=== PATIENT | female | born 1985 | race Caucasian/White ===

== ENCOUNTER 2016-11-20 23:41 | Emergency (ER) | payer SELFPAY ==
[2016-11-21 00:05] VITALS: RESP 16; TEMP 97.2
[2016-11-21] MEDS ORDERED: TOPICAL SKIN ADHESIVE 1 EACH AMP TOPICAL ONE (02:39)
[2016-11-21] MEDS ORDERED: DIPH,PERTUS(ACELL)TETVAC-LF 0.5 ML VIAL IM ONE (02:41)
--- NOTE | 2016-11-21 02:42 | ED ---
Wound/Laceration HPI - General Chief Complaint: Wound/Laceration Stated Complaint: hand lac Time Seen by Provider: 11/21/16 02:09 Source: patient, RN notes reviewed, old records reviewed Mode of arrival: ambulatory Limitations: no limitations - History of Present Illness Initial Comments: Patient is a 31 year old female with chief complaint of left palm laceration after attempting to cut brownies and the knife slipped. She states that she has a superficial laceration. Patient is right handed. She denies any trouble with moving wrist or fingers. Patient does not know tetanus status. Patient reports she could not control the bleeding. - Related Data Home Medications Medication Instructions Recorded Confirmed No Known Home Medications [No 11/21/16 11/21/16 Known Home Medications] Allergies Allergy/AdvReac Type Severity Reaction Status Date / Time No Known Allergies Allergy Verified 11/21/16 00:04 Review of Systems ROS Statement: Those systems with pertinent positive or pertinent negative responses have been documented in the HPI. ROS Other: All systems not noted in ROS Statement are negative. Past Medical History Past Medical History: No Reported History History of Any Multi-Drug Resistant Organisms: None Reported Past Surgical History: No Surgical Hx Reported Past Psychological History: No Psychological Hx Reported Smoking Status: Never smoker Past Alcohol Use History: None Reported Past Drug Use History: None Reported General Exam Limitations: no limitations General appearance: alert, in no apparent distress Head exam: Present: atraumatic, normocephalic, normal inspection Eye exam: Present: normal appearance, PERRL, EOMI. Absent: scleral icterus, conjunctival injection, periorbital swelling ENT exam: Present: normal exam, mucous membranes moist Neck exam: Present: normal inspection. Absent: tenderness, meningismus, lymphadenopathy Respiratory exam: Present: normal lung sounds bilaterally. Absent: respiratory distress, wheezes, rales, rhonchi, stridor Cardiovascular Exam: Present: regular rate, normal rhythm, normal heart sounds. Absent: systolic murmur, diastolic murmur, rubs, gallop, clicks GI/Abdominal exam: Present: soft, normal bowel sounds. Absent: distended, tenderness, guarding, rebound, rigid Extremities exam: Present: normal inspection, full ROM, normal capillary refill. Absent: tenderness, pedal edema, joint swelling, calf tenderness Left Upper Arm exam: Present: normal inspection, full ROM Elbow exam: Present: normal inspection, full ROM Forearm Wrist exam: Present: normal inspection, full ROM Hand Wrist exam: Present: full ROM. Absent: normal inspection (superficial laceration over palm. ) Back exam: Present: normal inspection Neurological exam: Present: alert, oriented X3, CN II-XII intact Psychiatric exam: Present: normal affect, normal mood Skin exam: Present: warm, dry, intact, normal color. Absent: rash Course Vital Signs 11/21/16 11/21/16 00:04 03:04 Temperature 97.2 F L Pulse Rate 82 69 Respiratory 16 16 Rate Blood Pressure 131/72 131/74 O2 Sat by Pulse 97 98 Oximetry Medical Decision Making - Medical Decision Making Patient is 31 year old with superficial laceration over left hand. Patient wound was soaked in soapy water, and patient wound was aproximated and closed with dermabond. Patient given up dated tetanus vaccination. Patient advised to monitor for signs of infection. Disposition Clinical Impression: Laceration of left hand Disposition: HOME SELF-CARE Condition: Good Instructions: Skin Adhesive Care (ED) Additional Instructions: Patient to allow skin glue to follow up on his own. Keep the wound covered. Monitor for any signs of infection including redness, drainage or swelling. Referrals: Nonstaff,Physician [Primary Care Provider] - 1-2 days Time of Disposition: 02:40
[2016-11-21 03:05] VITALS: BP 131/74; PULSE 69
== END 2016-11-21 03:04 | disposition home or self-care (01) ==
LOC: EC 23:41
DX: S61.412A Laceration without foreign body of left hand, initial encounter (principal); W26.0XXA Contact with knife, initial encounter; Z23 Encounter for immunization
CPT/HCPCS: 12001; 90471; 90715; 99283

== ENCOUNTER 2018-08-03 20:32 | Emergency (ER) | payer OTHER ==
[2018-08-03 20:39] VITALS: TEMP 97.5
--- NOTE | 2018-08-03 21:47 | XR ---
EXAMINATION TYPE: XR knee 4V bilateral, XR tibia fibula bilateral DATE OF EXAM: 08/03/2018 CLINICAL HISTORY: TECHNIQUE: Three views of the bilateral knees are obtained. Fourth sunrise view bilateral knees is p erformed. 2 views bilateral legs are acquired. COMPARISON: None. FINDINGS: There is no acute fracture/dislocation evident in either knee. There is symmetric mild to moderate narrowing and spurring medial tibiofemoral compartments somewhat pronounced for patient's ag e. There is symmetric mild to moderate narrowing with mild spurring bilateral patellofemoral compartm ents. Patellar articulation is within normal limits on bilateral sunrise views. The overlying soft ti ssue appears unremarkable bilaterally. Images of bilateral legs show no acute fracture or dislocation. Visualized portion of bilateral ankle joints appears within normal limits. Overlying soft tissue is unremarkable bilaterally. Incidental s mall to moderate size right superior and inferior calcaneal spurs. Entire left calcaneus is not inclu ded on image. IMPRESSION: There is no acute fracture or dislocation in the either leg or knee.
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
[2018-08-03 23:13] VITALS: BP 123/80; PULSE 73; RESP 16
== END 2018-08-03 22:54 | disposition home or self-care (01) ==
LOC: EC 20:32 → SUPCPDRO 20:32 → EC 22:54
DX: S80.212A Abrasion, left knee, initial encounter (principal); S80.812A Abrasion, left lower leg, initial encounter; S80.811A Abrasion, right lower leg, initial encounter; V43.52XA Car driver injured in collision with other type car in traffic accident, initial encounter; Y92.410 Unspecified street and highway as the place of occurrence of the external cause
CPT/HCPCS: 99284

== ENCOUNTER 2021-06-02 18:51 | Emergency (ER) | payer OTHER ==
[2021-06-02] MEDS ORDERED: ACETAMINOPHEN TAB 500 MG TAB PO STA (19:25)
--- NOTE | 2021-06-02 19:28 | ED ---
General Adult HPI - General Chief complaint: Fever Stated complaint: 10wks preg, fever Time Seen by Provider: 06/02/21 19:01 Source: patient, RN notes reviewed Mode of arrival: ambulatory Limitations: no limitations - History of Present Illness Initial comments: Patient is a pleasant 35-year-old female presenting to the emergency department with concerns for fever. Onset of symptoms was yesterday. Temperature yesterday was 99. Today was 101. Last Tylenol was fueler/late last night. Patient does have some mild fatigue. No significant cough or rhinorrhea. No dyspnea. No abdominal pain. No pelvic pain. No pelvic discharge or bleeding. No urinary symptoms. - Related Data Home Medications Medication Instructions Recorded Confirmed Lep-Rloe-Dtsev Acid 2 cap PO HS 06/02/21 06/02/21 [-U Capsule (formulary)] Previous Rx's Medication Instructions Recorded Cephalexin [Keflex] 500 mg PO QID #36 cap 06/02/21 Allergies Allergy/AdvReac Type Severity Reaction Status Date / Time No Known Allergies Allergy Verified 06/02/21 20:26 Review of Systems ROS Statement: Those systems with pertinent positive or pertinent negative responses have been documented in the HPI. ROS Other: All systems not noted in ROS Statement are negative. Constitutional: Reports: fever Eyes: Denies: eye pain ENT: Denies: ear pain Respiratory: Denies: cough, dyspnea Cardiovascular: Denies: chest pain Endocrine: Reports: fatigue Gastrointestinal: Denies: abdominal pain, vomiting Genitourinary: Denies: dysuria Musculoskeletal: Denies: back pain Skin: Denies: rash Neurological: Denies: weakness Past Medical History Past Medical History: No Reported History, Thyroid Disorder History of Any Multi-Drug Resistant Organisms: None Reported Past Surgical History: No Surgical Hx Reported Additional Past Surgical History / Comment(s): kidney stone surgery Past Psychological History: No Psychological Hx Reported Smoking Status: Never smoker Past Alcohol Use History: None Reported Past Drug Use History: None Reported General Exam Limitations: no limitations General appearance: alert, in no apparent distress Head exam: Present: normocephalic Eye exam: Present: normal appearance, PERRL ENT exam: Present: normal oropharynx Neck exam: Present: normal inspection Respiratory exam: Present: normal lung sounds bilaterally. Absent: respiratory distress, wheezes, rales, rhonchi Cardiovascular Exam: Present: regular rate, normal rhythm GI/Abdominal exam: Present: soft. Absent: tenderness Extremities exam: Present: normal inspection. Absent: pedal edema, calf tenderness Neurological exam: Present: alert Psychiatric exam: Present: normal affect, normal mood Skin exam: Present: normal color Course Vital Signs 06/02/21 06/02/21 18:53 21:00 Temperature 102.7 F H 98.9 F Pulse Rate 110 H 102 H Respiratory 20 18 Rate Blood Pressure 129/89 139/86 O2 Sat by Pulse 97 97 Oximetry Medical Decision Making - Medical Decision Making Patient reevaluated and updated. - Lab Data Lab Results 06/02/21 06/02/21 06/02/21 Range/Units 19:29 19:29 19:29 Urine Color Yellow Urine Appearance Cloudy H (Clear) Urine pH 7.0 (5.0-8.0) Ur Specific [place] 1.012 (1.001-1.035) Urine Protein 1+ H (Negative) Urine Glucose (UA) Negative (Negative) Urine Ketones Negative (Negative) Urine Blood Small H (Negative) Urine Nitrite Negative (Negative) Urine Bilirubin Negative (Negative) Urine Urobilinogen <2.0 (<2.0) mg/dL Ur Leukocyte Esterase Large H (Negative) Urine RBC 33 H (0-5) /hpf Urine WBC >182 H (0-5) /hpf Urine WBC Clumps Many H (None) /hpf Ur Squamous Epith Cells 2 (0-4) /hpf Urine Bacteria Many H (None) /hpf Urine Mucus Rare H (None) /hpf Urine Yeast (Budding) Many H (None) /hpf Coronavirus (PCR) Not Detected (Not Detectd) Influenza Type A RNA Not Detected (Not Detectd) Influenza Type B (PCR) Not Detected (Not Detectd) - Radiology Data Radiology results: image reviewed (Chest x-ray shows no acute process) Disposition Clinical Impression: Urinary tract infection Disposition: HOME SELF-CARE Condition: Stable Instructions (If sedation given, give patient instructions): Fever in Adults (ED), Urinary Tract Infection in Women (ED) Additional Instructions: Please follow-up with [facility] and primary care physician in the next day or 2 for recheck. Prescription sent to pharmacy. Return for uncontrolled fever, vomiting, pain, worsening symptoms or other concerns. Prescriptions: Cephalexin [Keflex] 500 mg PO QID #36 cap Is patient prescribed a controlled substance at d/c from ED?: No Referrals: Aminah Florez DO [Primary Care Provider] - 1-2 days Time of Disposition: 21:47
--- NOTE | 2021-06-02 20:07 | XR ---
EXAMINATION TYPE: XR chest 1V portable DATE OF EXAM: 06/02/2021 COMPARISON: NONE HISTORY: Fever TECHNIQUE: Single frontal view of the chest is obtained. FINDINGS: There is no focal air space opacity, pleural effusion, or pneumothorax seen. The cardiac silhouette size is within normal limits. The osseous structures are intact. IMPRESSION: No acute process.
[2021-06-02 21:01] VITALS: BP 139/86; PULSE 102; RESP 18; TEMP 98.9
[2021-06-02 21:13] LABS: Appearance,Urine Cloudy (Clear); Bacteria,Urine Many /hpf; Bilirubin,Urine Negative (Negative); Blood,Urine Small (Negative); Budding Yeast,Urine Many /hpf; Color,Urine Yellow; Glucose,Urine (UA) Negative (Negative); Ketones,Urine Negative (Negative); Leukocyte Esterase,Urine Large (Negative); Mucus,Urine Rare /hpf; Nitrite,Urine Negative (Negative); Protein,Urine 1+ (Negative); RBC,Urine 33 /hpf (0-5); Specific Gravity,Urine 1.012 (1.001-1.035); Squamous Epithelial Cell,Urine 2 /hpf (0-4); Urobilinogen,Urine <2.0 mg/dL (<2.0); WBC,Urine >182 /hpf (0-5)
[2021-06-02] MEDS ORDERED: CEPHALEXIN 500MG STARTER PACK 4 CAP BTL PO STA (21:45)
== END 2021-06-02 22:08 | disposition home or self-care (01) ==
LOC: EC 18:51
DX: O23.41 Unspecified infection of urinary tract in pregnancy, first trimester (principal); Z3A.10 10 weeks gestation of pregnancy
CPT/HCPCS: 71045; 81001; 87086; 87502; 87635; 99283

== ENCOUNTER 2021-06-22 17:49 | Emergency (ER) | payer OTHER ==
[2021-06-22 18:02] VITALS: BP 158/97; PULSE 81; RESP 20; TEMP 98.7
[2021-06-22] MEDS ORDERED: SODIUM CHLORIDE 0.9% 1,000 ML IV STA (18:56)
[2021-06-22 19:19] LABS: Basophils % (A) 0 %; Eosinophils # (A) 0.2 k/uL (0-0.7); Eosinophils % (A) 2 %; HCT 39.6 % (34.0-46.0); HGB 13.1 gm/dL (11.4-16.0); Lymphocytes # (A) 2.2 k/uL (1.0-4.8); Lymphocytes % (A) 19 %; MCH 29.3 pg (25.0-35.0); MCHC 33.2 g/dL (31.0-37.0); MCV 88.2 fL (80.0-100.0); Mean Platelet Volume 6.8; Monocytes # (A) 0.5 k/uL (0-1.0); Monocytes % (A) 4 %; Neutrophils # (A) 8.4 k/uL (1.3-7.7); Neutrophils % (A) 73 %; Platelet Count 276 k/uL (150-450); RBC 4.49 m/uL (3.80-5.40); RDW 12.7 % (11.5-15.5); WBC 11.5 k/uL (3.8-10.6)
[2021-06-22 19:32] LABS: Appearance,Urine Cloudy (Clear); Bacteria,Urine Few /hpf; Bilirubin,Urine Negative (Negative); Blood,Urine Large (Negative); Budding Yeast,Urine Moderate /hpf; Color,Urine Light Yellow; Glucose,Urine (UA) Negative (Negative); Ketones,Urine Negative (Negative); Leukocyte Esterase,Urine Large (Negative); Mucus,Urine Rare /hpf; Nitrite,Urine Negative (Negative); Protein,Urine Trace (Negative); RBC,Urine >182 /hpf (0-5); Specific Gravity,Urine 1.011 (1.001-1.035); Squamous Epithelial Cell,Urine <1 /hpf (0-4); Urobilinogen,Urine <2.0 mg/dL (<2.0); WBC,Urine 117 /hpf (0-5)
[2021-06-22 19:38] LABS: ALT 16 U/L (4-34); AST 22 U/L (14-36); African American GFR (CKD) >90 (>60 ml/min/1.73 sqM); Albumin 3.7 g/dL (3.5-5.0); Alkaline Phosphatase 63 U/L (38-126); Anion Gap 9 mmol/L; Blood Urea Nitrogen 18 mg/dL (7-17); Calcium 9.9 mg/dL (8.4-10.2); Carbon Dioxide 24 mmol/L (22-30); Chloride 101 mmol/L (98-107); Glucose 94 mg/dL (74-99); Non-African American GFR(CKD) >90 (>60 ml/min/1.73 sqM); Potassium 3.9 mmol/L (3.5-5.1); Sodium 134 mmol/L (137-145); Total Bilirubin 0.4 mg/dL (0.2-1.3); Total Protein 7.2 g/dL (6.3-8.2)
[2021-06-22 19:47] LABS: HCG,Quantitative Serum 741.6 mIU/mL
--- NOTE | 2021-06-22 20:16 | US ---
EXAMINATION TYPE: Transabdominal DATE OF EXAM: 06/22/2021 7:59 PM COMPARISON: NONE CLINICAL HISTORY: bleeding. Very limited exam due to patient body habitus EXAM PERFORMED: Transabdominal (TA) EXAM MEASUREMENTS: GESTATIONAL AGE / DATING Physician Established: Not yet established Dates by LMP: (12 weeks/1 days) EDC: 01/03/2022 Dates by First Scan: No previous this is first scan Dates by Current Scan for: No pole visualized MATERNAL ANATOMY Uterus: 9.5 x 4.0 x 3.9 cm Right Ovary: Not visualized Left Ovary: Not visualized Post CDS / Adnexa: wnl as visualized Presence of free fluid: no Presence of corpus luteal cyst: no Presence of subchorionic bleed: no GESTATION / SURVEY MSD: 1.2 cm (5 weeks/6 days) Yolk Sac (normal less than 6mm): 2 mm IUP: No pole seen at this time Date of LMP: Unsure, in march some time Beta HcG (if available): 741 Located near the cervix, there is a probable gestational sac measuring 5 weeks 6 days with a yolk sac . No pole is visualized. IMPRESSION: There is small gestational sac with 2.5 mm yolk sac. Gestational sac measures 12 mm corresponding to 5 weeks and 6 days. The sac is in the lower uterine segment near the cervix. No pole seen. Foll ow-up exam recommended in 7-10 days to confirm a living fetus.
--- NOTE | 2021-06-22 20:45 | ED ---
General Adult HPI - General Chief complaint: Vaginal Bleeding Stated complaint: 13 wks -discharge Time Seen by Provider: 06/22/21 18:25 Source: patient Mode of arrival: ambulatory Limitations: no limitations - History of Present Illness Initial comments: 35-year-old female currently estimated to be 13 weeks by LMP presents to the emergency room for a chief complaint of vaginal bleeding and mild cramping. Patient states this just started today. Patient reports she has not yet followed up with OB. No ultrasound as of yet.Patient has no other complaints at this time including shortness of breath, chest pain, abdominal pain, nausea or vomiting, headache, or visual changes. - Related Data Home Medications Medication Instructions Recorded Confirmed Czg-Hjep-Gnfvk Acid 1 cap PO HS 06/02/21 06/22/21 [-U Capsule (formulary)] Allergies Allergy/AdvReac Type Severity Reaction Status Date / Time No Known Allergies Allergy Verified 06/22/21 20:18 Review of Systems ROS Statement: Those systems with pertinent positive or pertinent negative responses have been documented in the HPI. ROS Other: All systems not noted in ROS Statement are negative. Past Medical History Past Medical History: No Reported History, Thyroid Disorder History of Any Multi-Drug Resistant Organisms: None Reported Past Surgical History: No Surgical Hx Reported Additional Past Surgical History / Comment(s): kidney stone surgery Past Psychological History: No Psychological Hx Reported Smoking Status: Never smoker Past Alcohol Use History: None Reported Past Drug Use History: None Reported General Exam Limitations: no limitations General appearance: alert, in no apparent distress Head exam: Present: atraumatic Eye exam: Present: normal appearance, PERRL, EOMI. Absent: scleral icterus, conjunctival injection ENT exam: Present: normal exam Neck exam: Present: normal inspection, full ROM. Absent: tenderness Respiratory exam: Present: normal lung sounds bilaterally. Absent: respiratory distress, wheezes Cardiovascular Exam: Present: regular rate, normal rhythm, normal heart sounds GI/Abdominal exam: Present: soft, normal bowel sounds. Absent: distended, tenderness Neurological exam: Present: alert Course Vital Signs 06/22/21 17:51 Temperature 98.7 F Pulse Rate 81 Respiratory 20 Rate Blood Pressure 158/97 O2 Sat by Pulse 98 Oximetry Medical Decision Making - Medical Decision Making vitals stable. CBC CMP unremarkable. HCG is 741. A positive blood type. Urinalysis does show possible evidence of infection, will be treated given recommendations to treat asymptomatic bacturia in . Ultrasound showed a small gestational sac, no pole, recommended follow-up. At this time there is concern for early versus miscarriage. Case was discussed with on-call [employer] Dr. [place]. She does except this case. Will see her outpatient. Recommend hCG be repeated. Recommends that ectopic precautions be given although unlikely. Patient will return here for any worsening symptoms. - Lab Data Result diagrams: 06/22/21 19:06 06/22/21 19:06 Lab Results 06/22/21 06/22/21 06/22/21 Range/Units 19:06 19:06 19:06 WBC 11.5 H (3.8-10.6) k/uL RBC 4.49 (3.80-5.40) m/uL Hgb 13.1 (11.4-16.0) gm/dL Hct 39.6 (34.0-46.0) % MCV 88.2 (80.0-100.0) fL MCH 29.3 (25.0-35.0) pg MCHC 33.2 (31.0-37.0) g/dL RDW 12.7 (11.5-15.5) % Plt Count 276 (150-450) k/uL MPV 6.8 Neutrophils % 73 % Lymphocytes % 19 % Monocytes % 4 % Eosinophils % 2 % Basophils % 0 % Neutrophils # 8.4 H (1.3-7.7) k/uL Lymphocytes # 2.2 (1.0-4.8) k/uL Monocytes # 0.5 (0-1.0) k/uL Eosinophils # 0.2 (0-0.7) k/uL Basophils # 0.0 (0-0.2) k/uL Sodium 134 L (137-145) mmol/L Potassium 3.9 (3.5-5.1) mmol/L Chloride 101 (98-107) mmol/L Carbon Dioxide 24 (22-30) mmol/L Anion Gap 9 mmol/L BUN 18 H (7-17) mg/dL Creatinine 0.79 (0.52-1.04) mg/dL Est GFR (CKD-EPI)AfAm >90 (>60 ml/min/1.73 sqM) Est GFR (CKD-EPI)NonAf >90 (>60 ml/min/1.73 sqM) Glucose 94 (74-99) mg/dL Calcium 9.9 (8.4-10.2) mg/dL Total Bilirubin 0.4 (0.2-1.3) mg/dL AST 22 (14-36) U/L ALT 16 (4-34) U/L Alkaline Phosphatase 63 (38-126) U/L Total Protein 7.2 (6.3-8.2) g/dL Albumin 3.7 (3.5-5.0) g/dL HCG, Quant 741.6 mIU/mL Urine Color Light Yellow Urine Appearance Cloudy H (Clear) Urine pH 7.0 (5.0-8.0) Ur Specific [place] 1.011 (1.001-1.035) Urine Protein Trace H (Negative) Urine Glucose (UA) Negative (Negative) Urine Ketones Negative (Negative) Urine Blood Large H (Negative) Urine Nitrite Negative (Negative) Urine Bilirubin Negative (Negative) Urine Urobilinogen <2.0 (<2.0) mg/dL Ur Leukocyte Esterase Large H (Negative) Urine RBC >182 H (0-5) /hpf Urine WBC 117 H (0-5) /hpf Urine WBC Clumps Moderate H (None) /hpf Ur Squamous Epith Cells <1 (0-4) /hpf Urine Bacteria Few H (None) /hpf Urine Mucus Rare H (None) /hpf Urine Yeast (Budding) Moderate H (None) /hpf Blood Type Blood Type Recheck Bld Type Recheck Status 06/22/21 Range/Units 19:06 WBC (3.8-10.6) k/uL RBC (3.80-5.40) m/uL Hgb (11.4-16.0) gm/dL Hct (34.0-46.0) % MCV (80.0-100.0) fL MCH (25.0-35.0) pg MCHC (31.0-37.0) g/dL RDW (11.5-15.5) % Plt Count (150-450) k/uL MPV Neutrophils % % Lymphocytes % % Monocytes % % Eosinophils % % Basophils % % Neutrophils # (1.3-7.7) k/uL Lymphocytes # (1.0-4.8) k/uL Monocytes # (0-1.0) k/uL Eosinophils # (0-0.7) k/uL Basophils # (0-0.2) k/uL Sodium (137-145) mmol/L Potassium (3.5-5.1) mmol/L Chloride (98-107) mmol/L Carbon Dioxide (22-30) mmol/L Anion Gap mmol/L BUN (7-17) mg/dL Creatinine (0.52-1.04) mg/dL Est GFR (CKD-EPI)AfAm (>60 ml/min/1.73 sqM) Est GFR (CKD-EPI)NonAf (>60 ml/min/1.73 sqM) Glucose (74-99) mg/dL Calcium (8.4-10.2) mg/dL Total Bilirubin (0.2-1.3) mg/dL AST (14-36) U/L ALT (4-34) U/L Alkaline Phosphatase (38-126) U/L Total Protein (6.3-8.2) g/dL Albumin (3.5-5.0) g/dL HCG, Quant mIU/mL Urine Color Urine Appearance (Clear) Urine pH (5.0-8.0) Ur Specific [place] (1.001-1.035) Urine Protein (Negative) Urine Glucose (UA) (Negative) Urine Ketones (Negative) Urine Blood (Negative) Urine Nitrite (Negative) Urine Bilirubin (Negative) Urine Urobilinogen (<2.0) mg/dL Ur Leukocyte Esterase (Negative) Urine RBC (0-5) /hpf Urine WBC (0-5) /hpf Urine WBC Clumps (None) /hpf Ur Squamous Epith Cells (0-4) /hpf Urine Bacteria (None) /hpf Urine Mucus (None) /hpf Urine Yeast (Budding) (None) /hpf Blood Type A Positive Blood Type Recheck No Previous Record Bld Type Recheck Status [facility] ONLY Disposition Clinical Impression: Threatened miscarriage Disposition: HOME SELF-CARE Condition: Good Instructions (If sedation given, give patient instructions): Threatened Miscarriage (ED) Additional Instructions: Please repeat hCG in 2 days. Follow-up with Dr. Sharif. Call the office tomorrow and let them know she would like to see you. You may need an ultrasound next week in office. Return to the emergency room for any worsening pain or vaginal bleeding. Is patient prescribed a controlled substance at d/c from ED?: No Referrals: Aminah Florez DO [Primary Care Provider] - 1-2 days Naomie Sharif DO [Doctor of Osteopathic Medicine] - 1-2 days Time of Disposition: 20:56
== END 2021-06-22 21:14 | disposition home or self-care (01) ==
LOC: EC 17:49
DX: O20.0 Threatened abortion (principal); Z3A.13 13 weeks gestation of pregnancy
CPT/HCPCS: 36415; 76801; 76817; 80053; 81001; 84702; 85025; 86900; 86901; 87077; 87086; 87186; 96360; 99284

== ENCOUNTER 2021-06-24 15:04 | Emergency (ER) | payer OTHER ==
[2021-06-24 16:37] VITALS: TEMP 98.2
[2021-06-24 18:32] LABS: Appearance,Urine Cloudy (Clear); Bacteria,Urine Many /hpf; Bilirubin,Urine Negative (Negative); Blood,Urine Large (Negative); Color,Urine Yellow; Glucose,Urine (UA) Negative (Negative); Ketones,Urine Trace (Negative); Leukocyte Esterase,Urine Large (Negative); Mucus,Urine Rare /hpf; Nitrite,Urine Negative (Negative); PH, Urine 6.5 (5.0-8.0); Protein,Urine Trace (Negative); RBC,Urine 175 /hpf (0-5); Specific Gravity,Urine 1.009 (1.001-1.035); Squamous Epithelial Cell,Urine 1 /hpf (0-4); Urobilinogen,Urine <2.0 mg/dL (<2.0); WBC,Urine >182 /hpf (0-5)
[2021-06-24 18:37] LABS: ALT 16 U/L (4-34); AST 22 U/L (14-36); African American GFR (CKD) >90 (>60 ml/min/1.73 sqM); Albumin 3.8 g/dL (3.5-5.0); Alkaline Phosphatase 64 U/L (38-126); Anion Gap 9 mmol/L; Blood Urea Nitrogen 13 mg/dL (7-17); Carbon Dioxide 23 mmol/L (22-30); Chloride 103 mmol/L (98-107); Glucose 91 mg/dL (74-99); Non-African American GFR(CKD) >90 (>60 ml/min/1.73 sqM); Potassium 3.8 mmol/L (3.5-5.1); Sodium 135 mmol/L (137-145); Total Bilirubin 0.8 mg/dL (0.2-1.3); Total Protein 7.2 g/dL (6.3-8.2)
[2021-06-24 18:40] LABS: Basophils % (A) 0 %; Eosinophils # (A) 0.2 k/uL (0-0.7); Eosinophils % (A) 2 %; HCT 39.7 % (34.0-46.0); HGB 13.6 gm/dL (11.4-16.0); Lymphocytes # (A) 1.6 k/uL (1.0-4.8); Lymphocytes % (A) 18 %; MCH 29.7 pg (25.0-35.0); MCHC 34.3 g/dL (31.0-37.0); MCV 86.7 fL (80.0-100.0); Mean Platelet Volume 6.4; Monocytes # (A) 0.4 k/uL (0-1.0); Monocytes % (A) 4 %; Neutrophils # (A) 6.5 k/uL (1.3-7.7); Neutrophils % (A) 74 %; Platelet Count 270 k/uL (150-450); RBC 4.59 m/uL (3.80-5.40); RDW 13.5 % (11.5-15.5); WBC 8.8 k/uL (3.8-10.6)
[2021-06-24 18:44] LABS: Partial Thromboplastin Time 23.1 sec (22.0-30.0); Prothrombin Time 10.5 sec (9.0-12.0)
[2021-06-24 18:53] LABS: HCG,Quantitative Serum 249.9 mIU/mL
--- NOTE | 2021-06-24 19:42 | US ---
EXAMINATION TYPE: Transabdominal DATE OF EXAM: 06/24/2021 7:14 PM COMPARISON: US CLINICAL HISTORY: , heavy vaginal bleeding. Heavy vaginal bleeding. . EXAM PERFORMED: Transvaginal (TV) and Transabdominal (TA) EXAM MEASUREMENTS: GESTATIONAL AGE / DATING Physician Established: Not yet established. Dates by LMP: (12 weeks/3 days) EDC: 01/03/2022 Dates by First Scan: (6 weeks/1 day) EDC: 02/16/2022. Gestational sac seen only. Dates by Current Scan for: ( 5 weeks/2 days) EDC: 02/22/2022. Gestational sac seen only, appears to be in lower uterus/cervix. MATERNAL ANATOMY Uterus: 8.2 x 4.4 x 3.8 cm. Right Ovary: Not seen. Left Ovary: Not seen. Post CDS / Adnexa: Appear wnl. Presence of free fluid: No. Presence of corpus luteal cyst: Not seen. Presence of subchorionic bleed: Heterogeneous area seen adjacent to the gestational sac: 1.2 x 1.3 x 1.2 cm. GESTATION / SURVEY MSD: 1.14 cm. (5 weeks/2 days). Appears to be in lower uterus/cervix area. Yolk Sac (normal less than 6mm): Not seen. Date of LMP: 03/29/2021 Beta HcG (if available): 249.9 IMPRESSION: Irregularly shaped intrauterine gestational sac without a yolk sac. In the setting of falling beta hC G findings are concerning for but not diagnostic of failure. Differential considerations in clude early IUP, non-visualized ectopic or failed . Recommend follow-up with seria l beta-hCG and ultrasound.
--- NOTE | 2021-06-24 20:49 | ED ---
General Adult HPI - General Chief complaint: Vaginal Bleeding Stated complaint: 6 weeks ,Bleeding and cramping Source: patient Mode of arrival: ambulatory Limitations: no limitations - History of Present Illness Initial comments: 35-year-old female approximately 6 weeks presents emergency department for continued bleeding and cramping. Patient was seen here Monday for similar complaints. She did ultrasound performed which demonstrated an intrauterine approximately 6 weeks along. She is supposed to follow with Dr. Sharif states she has an appointment on Monday. Patient was supposed to have repeat laboratory testing done today. States that her bleeding has gotten heavier with clots and therefore she came into the emergency department for evaluation instead. Patient denies any abdominal trauma. No abnormal vaginal discharge. Denies concern for sexual transmitted infections. No urinary or bowel complaints. No other alleviating, precipitating modifying factors - Related Data Home Medications Medication Instructions Recorded Confirmed Mwi-Uyzr-Oewcr Acid 1 cap PO HS 06/02/21 06/24/21 [-U Capsule (formulary)] Allergies Allergy/AdvReac Type Severity Reaction Status Date / Time No Known Allergies Allergy Verified 06/24/21 19:30 Review of Systems ROS Statement: Those systems with pertinent positive or pertinent negative responses have been documented in the HPI. ROS Other: All systems not noted in ROS Statement are negative. Past Medical History Past Medical History: No Reported History, Thyroid Disorder History of Any Multi-Drug Resistant Organisms: None Reported Past Surgical History: No Surgical Hx Reported Additional Past Surgical History / Comment(s): kidney stone surgery Past Psychological History: No Psychological Hx Reported Smoking Status: Never smoker Past Alcohol Use History: None Reported Past Drug Use History: None Reported General Exam Limitations: no limitations Course Vital Signs 06/24/21 06/24/21 16:34 21:12 Temperature 98.2 F Pulse Rate 90 74 Respiratory 18 16 Rate Blood Pressure 178/124 160/90 O2 Sat by Pulse 98 97 Oximetry Medical Decision Making - Medical Decision Making Upon arrival patient is placed into room 22. A thorough history and physical exam was performed. Laboratory studies are obtained. Rh is a positive. Laboratory studies reveal a stable hemoglobin of 13.6. Urinalysis demonstrates large blood. Beta Quant 249. Ultrasound demonstrates irregularly shaped intrauterine gestational sac without a yolk sac. In the setting of a falling beta hCG, this is indicative of likely failure. This is conveyed to the patient. Pelvic exam is performed which demonstrates mild vaginal bleeding with an open cervix. I did call and speak with Dr. Bond. Patient does have her appointment on Monday to follow with Dr. Hodge. Informed that her beta Quant was back down to 0 and the [employer] will follow this for her. The patient has any new or worsening symptoms to include fever or worsening bleeding she is to return to the emergency room. Patient understood. She was given a Tylenol 3 starter pack for pain at home and discharged home in stable condition - Lab Data Result diagrams: 06/24/21 18:22 06/24/21 18:22 Lab Results 06/24/21 06/24/21 06/24/21 Range/Units 18: 18: 18:22 WBC 8.8 (3.8-10.6) k/uL RBC 4.59 (3.80-5.40) m/uL Hgb 13.6 (11.4-16.0) gm/dL Hct 39.7 (34.0-46.0) % MCV 86.7 (80.0-100.0) fL MCH 29.7 (25.0-35.0) pg MCHC 34.3 (31.0-37.0) g/dL RDW 13.5 (11.5-15.5) % Plt Count 270 (150-450) k/uL MPV 6.4 Neutrophils % 74 % Lymphocytes % 18 % Monocytes % 4 % Eosinophils % 2 % Basophils % 0 % Neutrophils # 6.5 (1.3-7.7) k/uL Lymphocytes # 1.6 (1.0-4.8) k/uL Monocytes # 0.4 (0-1.0) k/uL Eosinophils # 0.2 (0-0.7) k/uL Basophils # 0.0 (0-0.2) k/uL PT 10.5 (9.0-12.0) sec INR 1.0 (<1.2) APTT 23.1 (22.0-30.0) sec Sodium (137-145) mmol/L Potassium (3.5-5.1) mmol/L Chloride (98-107) mmol/L Carbon Dioxide (22-30) mmol/L Anion Gap mmol/L BUN (7-17) mg/dL Creatinine (0.52-1.04) mg/dL Est GFR (CKD-EPI)AfAm (>60 ml/min/1.73 sqM) Est GFR (CKD-EPI)NonAf (>60 ml/min/1.73 sqM) Glucose (74-99) mg/dL Calcium (8.4-10.2) mg/dL Total Bilirubin (0.2-1.3) mg/dL AST (14-36) U/L ALT (4-34) U/L Alkaline Phosphatase (38-126) U/L Total Protein (6.3-8.2) g/dL Albumin (3.5-5.0) g/dL HCG, Quant mIU/mL Urine Color Yellow Urine Appearance Cloudy H (Clear) Urine pH 6.5 (5.0-8.0) Ur Specific [place] 1.009 (1.001-1.035) Urine Protein Trace H (Negative) Urine Glucose (UA) Negative (Negative) Urine Ketones Trace H (Negative) Urine Blood Large H (Negative) Urine Nitrite Negative (Negative) Urine Bilirubin Negative (Negative) Urine Urobilinogen <2.0 (<2.0) mg/dL Ur Leukocyte Esterase Large H (Negative) Urine RBC 175 H (0-5) /hpf Urine WBC >182 H (0-5) /hpf Urine WBC Clumps Few H (None) /hpf Ur Squamous Epith Cells 1 (0-4) /hpf Urine Bacteria Many H (None) /hpf Urine Mucus Rare H (None) /hpf 06/24/21 Range/Units 18:22 WBC (3.8-10.6) k/uL RBC (3.80-5.40) m/uL Hgb (11.4-16.0) gm/dL Hct (34.0-46.0) % MCV (80.0-100.0) fL MCH (25.0-35.0) pg MCHC (31.0-37.0) g/dL RDW (11.5-15.5) % Plt Count (150-450) k/uL MPV Neutrophils % % Lymphocytes % % Monocytes % % Eosinophils % % Basophils % % Neutrophils # (1.3-7.7) k/uL Lymphocytes # (1.0-4.8) k/uL Monocytes # (0-1.0) k/uL Eosinophils # (0-0.7) k/uL Basophils # (0-0.2) k/uL PT (9.0-12.0) sec INR (<1.2) APTT (22.0-30.0) sec Sodium 135 L (137-145) mmol/L Potassium 3.8 (3.5-5.1) mmol/L Chloride 103 (98-107) mmol/L Carbon Dioxide 23 (22-30) mmol/L Anion Gap 9 mmol/L BUN 13 (7-17) mg/dL Creatinine 0.77 (0.52-1.04) mg/dL Est GFR (CKD-EPI)AfAm >90 (>60 ml/min/1.73 sqM) Est GFR (CKD-EPI)NonAf >90 (>60 ml/min/1.73 sqM) Glucose 91 (74-99) mg/dL Calcium 9.0 (8.4-10.2) mg/dL Total Bilirubin 0.8 (0.2-1.3) mg/dL AST 22 (14-36) U/L ALT 16 (4-34) U/L Alkaline Phosphatase 64 (38-126) U/L Total Protein 7.2 (6.3-8.2) g/dL Albumin 3.8 (3.5-5.0) g/dL HCG, Quant 249.9 mIU/mL Urine Color Urine Appearance (Clear) Urine pH (5.0-8.0) Ur Specific [place] (1.001-1.035) Urine Protein (Negative) Urine Glucose (UA) (Negative) Urine Ketones (Negative) Urine Blood (Negative) Urine Nitrite (Negative) Urine Bilirubin (Negative) Urine Urobilinogen (<2.0) mg/dL Ur Leukocyte Esterase (Negative) Urine RBC (0-5) /hpf Urine WBC (0-5) /hpf Urine WBC Clumps (None) /hpf Ur Squamous Epith Cells (0-4) /hpf Urine Bacteria (None) /hpf Urine Mucus (None) /hpf Disposition Clinical Impression: Vaginal bleeding, Inevitable Disposition: HOME SELF-CARE Condition: Stable Instructions (If sedation given, give patient instructions): Threatened Miscarriage (ED) Additional Instructions: Please follow-up at your scheduled appointment on Monday. Return to the emergency room for any new or worsening symptoms Is patient prescribed a controlled substance at d/c from ED?: No Referrals: Aminah Florez DO [Primary Care Provider] - 1-2 days Naomie Sharif DO [Doctor of Osteopathic Medicine] - 1-2 days Time of Disposition: 20:49
[2021-06-24] MEDS ORDERED: ACET/COD 300 MG/30 MG STARTER PACK 6 TAB BTL PO STA (21:01)
[2021-06-24 21:13] VITALS: BP 160/90; PULSE 74; RESP 16
== END 2021-06-24 21:18 | disposition home or self-care (01) ==
LOC: EC 15:04
DX: O03.9 Complete or unspecified spontaneous abortion without complication (principal); E07.9 Disorder of thyroid, unspecified
CPT/HCPCS: 36415; 76801; 76817; 80053; 81001; 84702; 85025; 85610; 85730; 87077; 87086; 87186; 99284

== ENCOUNTER 2021-06-29 20:29 | Emergency (ER) | payer OTHER ==
[2021-06-29] MEDS ORDERED: MORPHINE SULFATE 4 MG/ML SYRINGE IVP STA (22:16)
--- NOTE | 2021-06-29 22:16 | ED ---
Female Urogenital HPI - General Chief complaint: Vaginal Bleeding Stated complaint: Bleeding, Post Miscarrage,Cramping Time Seen by Provider: 06/29/21 20:45 Source: patient, family Mode of arrival: wheelchair Limitations: no limitations - History of Present Illness Initial comments: 35-year-old female approximately 6 weeks presents emergency room reporting continued vaginal bleeding. Seen 2 days ago for vaginal bleeding was diagnosed with a inevitable miscarriage. Patient went home and has been having some moderate bleeding. States that approximately one hour prior to hospital arrival today she began having heavier bleeding. Saturated an overnight pad an hour. Began having intense cramping. Did not take any medications at home for her symptoms. Is supposed to see Dr. Sharif at 8:30 AM tomorrow. Denies vaginal discharge, heavy clotting, diffuse abd pain, fevers or chills. No alleviating, precipitating or modifying factors - Related Data Home Medications Medication Instructions Recorded Confirmed Hdc-Wtxz-Oaukw Acid 1 cap PO HS 06/02/21 06/29/21 [-U Capsule (formulary)] Previous Rx's Medication Instructions Recorded Cephalexin [Keflex] 500 mg PO BID 7 Days #14 cap 06/27/21 Allergies Allergy/AdvReac Type Severity Reaction Status Date / Time No Known Allergies Allergy Verified 06/29/21 22:19 Review of Systems ROS Statement: Those systems with pertinent positive or pertinent negative responses have been documented in the HPI. ROS Other: All systems not noted in ROS Statement are negative. Past Medical History Past Medical History: No Reported History, Thyroid Disorder Additional Past Medical History / Comment(s): miscarriage History of Any Multi-Drug Resistant Organisms: None Reported Past Surgical History: No Surgical Hx Reported Additional Past Surgical History / Comment(s): kidney stone surgery Past Psychological History: No Psychological Hx Reported Smoking Status: Never smoker Past Alcohol Use History: None Reported Past Drug Use History: None Reported General Exam Limitations: no limitations General appearance: alert, in no apparent distress Head exam: Present: atraumatic, normocephalic, normal inspection Eye exam: Present: normal appearance, PERRL, EOMI. Absent: scleral icterus, conjunctival injection, periorbital swelling ENT exam: Present: normal exam, mucous membranes moist Neck exam: Present: normal inspection. Absent: tenderness, meningismus, lymphadenopathy Respiratory exam: Present: normal lung sounds bilaterally. Absent: respiratory distress, wheezes, rales, rhonchi, stridor Cardiovascular Exam: Present: regular rate, normal rhythm, normal heart sounds. Absent: systolic murmur, diastolic murmur, rubs, gallop, clicks GI/Abdominal exam: Present: soft, normal bowel sounds. Absent: distended, t enderness, guarding, rebound, rigid Speculum exam: Present: vaginal bleeding (small amount of clots. No discharge. Cervix open. No tissue identified) Extremities exam: Present: normal inspection, full ROM, normal capillary refill. Absent: tenderness, pedal edema, joint swelling, calf tenderness Back exam: Present: normal inspection Neurological exam: Present: alert, oriented X3, CN II-XII intact Psychiatric exam: Present: normal affect, normal mood Skin exam: Present: warm, dry, intact, normal color. Absent: rash Course Vital Signs 06/29/21 06/29/21 06/29/21 20:42 21:53 23:57 Temperature 97.1 F L Pulse Rate 79 85 91 Respiratory 22 30 H 20 Rate Blood Pressure 128/83 147/119 153/95 O2 Sat by Pulse 95 100 97 Oximetry 06/30/21 01:08 Temperature 97.5 F L Pulse Rate 78 Respiratory 18 Rate Blood Pressure 164/98 O2 Sat by Pulse 100 Oximetry Medical Decision Making - Medical Decision Making Upon arrival patient placed in room 20. IV is established patient is given a dose of morphine. Laboratory studies were conducted and repeat ultrasound is performed. Hemoglobin 14.5 from previous value of 13.6. Beta Quant has fallen to 120 from 249. Ultrasound demonstrates small fluid collection in the lower uterine segment with no yolk sac. Pelvic exam is performed and does demonstrate a small amount of bright red blood with no heavy clots. Patient hemodynamically stable. Called and spoke with Dr. Orlando. Recommending pain control with Motrin. Patient given a dose in the emergency department. She will follow up with Dr. Sharif in the morning at 830 am. Return for any new or worsening symptoms. Patient was discharged home in stable condition - Lab Data Result diagrams: 06/29/21 22:34 06/29/21 22:34 Lab Results 06/29/21 06/29/21 06/29/21 Range/Units 22:34 22:34 23:15 WBC 10.1 (3.8-10.6) k/uL RBC 4.66 (3.80-5.40) m/uL Hgb 14.5 (11.4-16.0) gm/dL Hct 40.6 (34.0-46.0) % MCV 87.1 (80.0-100.0) fL MCH 31.1 (25.0-35.0) pg MCHC 35.7 (31.0-37.0) g/dL RDW 13.4 (11.5-15.5) % Plt Count 202 (150-450) k/uL MPV 7.5 Neutrophils % 82 % Lymphocytes % 12 % Monocytes % 4 % Eosinophils % 1 % Basophils % 0 % Neutrophils # 8.3 H (1.3-7.7) k/uL Lymphocytes # 1.3 (1.0-4.8) k/uL Monocytes # 0.4 (0-1.0) k/uL Eosinophils # 0.1 (0-0.7) k/uL Basophils # 0.0 (0-0.2) k/uL PT 10.8 (9.0-12.0) sec INR 1.0 (<1.2) Sodium 134 L (137-145) mmol/L Potassium 4.5 (3.5-5.1) mmol/L Chloride 104 (98-107) mmol/L Carbon Dioxide 19 L (22-30) mmol/L Anion Gap 11 mmol/L BUN 16 (7-17) mg/dL Creatinine 0.77 (0.52-1.04) mg/dL Est GFR (CKD-EPI)AfAm >90 (>60 ml/min/1.73 sqM) Est GFR (CKD-EPI)NonAf >90 (>60 ml/min/1.73 sqM) Glucose 139 H (74-99) mg/dL Calcium 9.3 (8.4-10.2) mg/dL Total Bilirubin 0.5 (0.2-1.3) mg/dL AST 31 (14-36) U/L ALT 23 (4-34) U/L Alkaline Phosphatase 71 (38-126) U/L Total Protein 7.7 (6.3-8.2) g/dL Albumin 4.1 (3.5-5.0) g/dL HCG, Quant 120.4 mIU/mL Disposition Clinical Impression: Vaginal bleeding, Inevitable Disposition: HOME SELF-CARE Condition: Stable Instructions (If sedation given, give patient instructions): Miscarriage (ED) Additional Instructions: Please follow up with your OBGYN at your scheduled appointment tomorrow. Return to the ED for any new or worsening symptoms. Is patient prescribed a controlled substance at d/c from ED?: No Referrals: Aminah Florez DO [Primary Care Provider] - 1-2 days Naomie Sharif DO [Doctor of Osteopathic Medicine] - 1-2 days Time of Disposition: 00:47
[2021-06-29 22:51] LABS: Basophils % (A) 0 %; Eosinophils # (A) 0.1 k/uL (0-0.7); Eosinophils % (A) 1 %; HCT 40.6 % (34.0-46.0); HGB 14.5 gm/dL (11.4-16.0); Lymphocytes # (A) 1.3 k/uL (1.0-4.8); Lymphocytes % (A) 12 %; MCH 31.1 pg (25.0-35.0); MCHC 35.7 g/dL (31.0-37.0); MCV 87.1 fL (80.0-100.0); Mean Platelet Volume 7.5; Monocytes # (A) 0.4 k/uL (0-1.0); Monocytes % (A) 4 %; Neutrophils # (A) 8.3 k/uL (1.3-7.7); Neutrophils % (A) 82 %; Platelet Count 202 k/uL (150-450); RBC 4.66 m/uL (3.80-5.40); RDW 13.4 % (11.5-15.5); WBC 10.1 k/uL (3.8-10.6)
[2021-06-29 23:09] LABS: ALT 23 U/L (4-34); AST 31 U/L (14-36); African American GFR (CKD) >90 (>60 ml/min/1.73 sqM); Albumin 4.1 g/dL (3.5-5.0); Alkaline Phosphatase 71 U/L (38-126); Anion Gap 11 mmol/L; Blood Urea Nitrogen 16 mg/dL (7-17); Calcium 9.3 mg/dL (8.4-10.2); Carbon Dioxide 19 mmol/L (22-30); Chloride 104 mmol/L (98-107); Glucose 139 mg/dL (74-99); Non-African American GFR(CKD) >90 (>60 ml/min/1.73 sqM); Potassium 4.5 mmol/L (3.5-5.1); Sodium 134 mmol/L (137-145); Total Bilirubin 0.5 mg/dL (0.2-1.3); Total Protein 7.7 g/dL (6.3-8.2)
[2021-06-29 23:24] LABS: HCG,Quantitative Serum 120.4 mIU/mL
[2021-06-29 23:51] LABS: Prothrombin Time 10.8 sec (9.0-12.0)
--- NOTE | 2021-06-30 00:42 | US ---
EXAMINATION TYPE: Transabdominal DATE OF EXAM: 06/29/2021 11:55 PM COMPARISON: US CLINICAL HISTORY: pain. Pain and bleeding. . EXAM PERFORMED: Transvaginal (TV) and Transabdominal (TA) EXAM MEASUREMENTS: GESTATIONAL AGE / DATING Physician Established: Not yet established. Dates by LMP: (13 weeks/1 day) EDC: 01/03/2022 Dates by First Scan: (6 weeks/6 days) EDC: 02/16/2022 Dates by Current Scan for: No pole seen at this time. Possible irregular gestational sac measur es (5 weeks/4 days) EDC: 02/25/2022 MATERNAL ANATOMY Uterus: Anteverted. 9.9 x 4.0 x 4.8 cm. Right Ovary: Not seen. Left Ovary: Not seen. Post CDS / Adnexa: Appear wnl. Presence of free fluid: None seen. GESTATION / SURVEY MSD: Complex area seen, Possible irregular-appearing sac seen in lower uterus measures (5 weeks/4 day s) Yolk Sac (normal less than 6mm): Not seen. IUP: Possible irregular appearing gestational sac seen only at this time. Date of LMP: 03/29/2021 Beta HcG (if available): 120.4 IMPRESSION: Small fluid collection in the lower uterine segment. No yolk sac seen. This could be an irregular ges tational sac with size corresponding to 5 weeks and 4 days. I would also consider the possibility of a blighted ovum or incomplete . No sign of ectopic .
[2021-06-30] MEDS ORDERED: IBUPROFEN 600 MG TAB PO STA (00:47)
[2021-06-30] MEDS ORDERED: MORPHINE SULFATE 4 MG/ML SYRINGE IVP STA (00:53)
[2021-06-30 01:59] VITALS: BP 164/98; PULSE 78; RESP 18; TEMP 97.5
== END 2021-06-30 01:10 | disposition home or self-care (01) ==
LOC: EC 20:29
DX: O03.4 Incomplete spontaneous abortion without complication (principal); E07.9 Disorder of thyroid, unspecified; Z3A.01 Less than 8 weeks gestation of pregnancy
CPT/HCPCS: 99284; 96374; 96376; 36415; 80053; 85025; 85610; 84702; 76801; 76817; J2270 ×2

== ENCOUNTER → 2021-07-02 | Outpatient (CLI) | payer OTHER | END | disposition home or self-care (01) | LOC: LABWHC1 13:44 | PROVIDERS: ATTEND Obstetrics & Gynecology Obstetrics | DX: O03.4 Incomplete spontaneous abortion without complication (principal); Z3A.00 Weeks of gestation of pregnancy not specified | CPT/HCPCS: 36415; 84702 ==

== ENCOUNTER → 2021-07-12 | Outpatient (CLI) | payer OTHER | END | disposition home or self-care (01) | LOC: LABPAT 15:49 | PROVIDERS: ATTEND Obstetrics & Gynecology Obstetrics | DX: O02.1 Missed abortion (principal); Z3A.00 Weeks of gestation of pregnancy not specified | CPT/HCPCS: 84702 ==

== ENCOUNTER → 2023-11-10 | Outpatient (CLI) | payer OTHER ==
[2023-11-11 02:44] LABS: HCT 43.2 % (37.2-46.3); HGB 13.8 g/dL (12.0-15.0); MCH 27.6 pg (27.0-32.0); MCHC 31.9 g/dL (32.0-37.0); MCV 86.4 FL (80.0-97.0); Mean Platelet Volume 9.1 FL (9.5-12.2); NRBC Per 100 WBC 0 X 10*3/uL (0.00-0.01); Platelet Count 276 X 10*3/uL (140-440); RDW 13.1 % (11.5-14.5); WBC 9.79 X 10*3/uL (4.50-10.00)
[2023-11-11 03:22] LABS: HCG,Quantitative Serum <3.0 mIU/mL (0.0-6.0); T4, Free (Free Thyroxine) 0.92 ng/dL (0.80-1.80)
[2023-11-11 03:29] LABS: Follicle Stimulating Hormone 3.8 mIU/mL
== END | disposition home or self-care (01) ==
LOC: LABWHC1 16:10
PROVIDERS: ATTEND Obstetrics & Gynecology
DX: N96 Recurrent pregnancy loss (principal); N91.2 Amenorrhea, unspecified
CPT/HCPCS: 36415; 83001; 83036; 84144; 84146; 84439; 84443; 84702; 85027

== ENCOUNTER 2024-06-15 13:10 | Emergency (ER) | payer OTHER ==
--- NOTE | 2024-06-15 13:57 | ED ---
Female Urogenital HPI - General Chief complaint: Vaginal Bleeding Stated complaint: Vaginal Bleeding Time Seen by Provider: 06/15/24 13:55 Source: patient, RN notes reviewed Mode of arrival: ambulatory - History of Present Illness Initial comments: 38-year-old female A3 presented to ER with a chief complaint of vaginal bleeding. Patient states her last menstrual cycle was 03-25-2024. She states she is approximately 2 months . She has not been able to follow-up with her OB, Dr. Sharif due to insurance issues. She states on she noticed bright red blood when wiping after urination. She states states on Monday she passed a couple of clots throughout the day. She did place a pad but had no discharge on that. Nothing today. She does report mild lower abdominal cramping in the past couple of days. Patient is concerned she is having a miscarriage. She denies any fevers, chills, dysuria or peripheral edema. No other complaints. Last Menstrual Period: 03/24/24 - Related Data Home Medications Medication Instructions Recorded Confirmed Yce-Hnuz-Hpnbg Acid 1 cap PO HS 06/02/21 06/29/21 [-U Capsule (formulary)] Previous Rx's Medication Instructions Recorded Cephalexin [Keflex] 500 mg PO BID 7 Days #14 cap 06/27/21 Cephalexin [Keflex] 500 mg PO Q6HR #40 cap 06/15/24 Allergies Allergy/AdvReac Type Severity Reaction Status Date / Time No Known Allergies Allergy Verified 06/15/24 13:42 Review of Systems ROS Statement: Those systems with pertinent positive or pertinent negative responses have been documented in the HPI. ROS Other: All systems not noted in ROS Statement are negative. Past Medical History Past Medical History: No Reported History, Thyroid Disorder Additional Past Medical History / Comment(s): miscarriage. kisney stone History of Any Multi-Drug Resistant Organisms: None Reported Past Surgical History: No Surgical Hx Reported Additional Past Surgical History / Comment(s): kidney stone surgery Past Psychological History: No Psychological Hx Reported Smoking Status: Never smoker Past Alcohol Use History: None Reported Past Drug Use History: None Reported General Exam General appearance: alert, in no apparent distress Respiratory exam: Present: normal lung sounds bilaterally. Absent: respiratory distress, wheezes, rales, rhonchi, stridor Cardiovascular Exam: Present: regular rate, normal rhythm, normal heart sounds. Absent: systolic murmur, diastolic murmur, rubs, gallop, clicks GI/Abdominal exam: Present: soft, normal bowel sounds. Absent: distended, tenderness, guarding, rebound, rigid Neurological exam: Present: alert, oriented X3, CN II-XII intact Skin exam: Present: warm, dry, intact, normal color. Absent: rash Course Vital Signs 06/15/24 13:38 Temperature 98.1 F Pulse Rate 83 Respiratory 18 Rate Blood Pressure 174/118 O2 Sat by Pulse 96 Oximetry Medical Decision Making - Medical Decision Making Was pt. sent in by a medical professional or institution (, PA, WARRANTY CLERK, urgent care, hospital, or skilled nursing...) When possible be specific @ -No Did you speak to anyone other than the patient for history (EMS, parent, family, police, friend...)? What history was obtained from this source @ -No Did you review nursing and triage notes (agree or disagree)? Why? @ -I reviewed and agree with nursing and triage notes Were old charts reviewed (outside hosp., previous admission, EMS record, old EKG, old radiological studies, urgent care reports/EKG's, skilled nursing records)? Report findings @ -No old charts were reviewed Differential Diagnosis (chest pain, altered mental status, abdominal pain women, abdominal pain men, vaginal bleeding, weakness, fever, dyspnea, syncope, headache, dizziness, GI bleed, back pain, seizure, CVA, palpatations, mental health, musculoskeletal)? @ -Differential Vaginal Bleeding: Spontaneous , threatened , molar , ectopic , bloody show, incompetent cervix, abruptioplacenta, placenta previa, uterine rupture, dysfunctional uterine bleeding, hemorrhage, uterine fibroids, this is not meant to be an all-inclusive list. EKG interpreted by me (3pts min.). @ -None done X-rays interpreted by me (1pt min.). @ -None done CT interpreted by me (1pt min.). @ -None done U/S interpreted by me (1pt. min.). @ - ultrasound showing a small anechoic intrauterine cystic structure without evidence for yolk sac or pole at this time. Could represent early gestational sac with positive hCG however ectopic and abnormal intrauterine cannot be ruled out. Possible small subchorionic hemorrhage. What testing was considered but not performed or refused? (CT, X-rays, U/S, labs)? Why? @ -None What meds were considered but not given or refused? Why? @ -None Did you discuss the management of the patient with other professionals (professionals i.e. , PA, WARRANTY CLERK, lab, RT, psych nurse, mental health social worker, signal helper, teacher, tactical intelligence officer, case finishing machine adjuster)? Give summary @ -No Was smoking cessation discussed for >3mins.? @ -No Was critical care preformed (if so, how long)? @ -No Were there social determinants of health that impacted care today? How? (Homelessness, low income, unemployed, alcoholism, drug addiction, transportation, low edu. Level, literacy, decrease access to med. care, [facility], rehab)? @ -No Was there de-escalation of care discussed even if they declined (Discuss DNR or withdrawal of care, Hospice)? DNR status @ -No What co-morbidities impacted this encounter? (DM, HTN, Smoking, COPD, CAD, Cancer, CVA, ARF, Chemo, Hep., AIDS, mental health diagnosis, sleep apnea, morbid obesity)? @ -None Was patient admitted / discharged? Hospital course, mention meds given and route, prescriptions, significant lab abnormalities, going to OR and other pertinent info. @ -Discharge. 38-year-old A3 approximately 8 weeks gestation presenting to the ER with a chief complaint of vaginal bleeding. History and physical exam c ompleted. Vitals within normal limits. Patient in no signs of acute distress and nontoxic-appearing. No focal abdominal tenderness to exam. Laboratory studies and ultrasound will be performed, patient is agreeable to this. Laboratory studies obtained significant for a stable hemoglobin of 13.7. CMP unremarkable. Serum hCG 8499.3. Urinalysis concerning of infection with large leukocyte esterases and greater than 182 WBCs with occasional bacteria. Patient will be started on Keflex for UTI. ultrasound showing a small anechoic intrauterine cystic structure without evidence of yolk sac or pole. There is a possible small subchorionic hemorrhage noted as well. Patient's blood type is A+ , RhoGAM is not indicated. Upon reevaluation, patient resting comfortably in exam room no signs of acute distress. Results discussed with patient, all questions answered. Serial hCGs and ultrasound advised and prescription given for 48 hours. Strict return parameters discussed. Patient discharged in stable condition with follow-up to patients WELFARE PROJECT MANAGER, Dr. Sharif. I advised to complete full course of antibiotics. Patient verbally expressed understanding and agreement with care plan. Case discussed with ED attending, Dr. Phelps. Undiagnosed new problem with uncertain prognosis? @ -No Drug Therapy requiring intensive monitoring for toxicity (Heparin, Nitro, Insu marlo, Cardizem)? @ -No Were any procedures done? @ -No Diagnosis/symptom? @ -Threatened /UTI Acute, or Chronic, or Acute on Chronic? @ -Acute Uncomplicated (without systemic symptoms) or Complicated (systemic symptoms)? @ -Uncomplicated Side effects of treatment? @ -No Exacerbation, Progression, or Severe Exacerbation? @ -No Poses a threat to life or bodily function? How? (Chest pain, [place], [place], pneumonia, PE, COPD, DKA, ARF, appy, cholecystitis, CVA, Diverticulitis, Homicidal, Suici al, threat to staff... and all critical care pts) @ -No - Lab Data Result diagrams: 06/15/24 13:57 06/15/24 13:57 Lab Results 06/15/24 06/15/24 06/15/24 Range/Units 13:57 13:57 13:57 WBC 7.5 (3.8-10.6) k/uL RBC 4.83 (3.80-5.40) m/uL Hgb 13.7 (11.4-16.0) gm/dL Hct 41.6 (34.0-46.0) % MCV 86.1 (80.0-100.0) fL MCH 28.3 (25.0-35.0) pg MCHC 32.9 (31.0-37.0) g/dL RDW 13.3 (11.5-15.5) % Plt Count 261 (150-450) k/uL MPV 6.3 Neutrophils % 71 % Lymphocytes % 19 % Monocytes % 6 % Eosinophils % 2 % Basophils % 0 % Neutrophils # 5.3 (1.3-7.7) k/uL Lymphocytes # 1.4 (1.0-4.8) k/uL Monocytes # 0.4 (0-1.0) k/uL Eosinophils # 0.2 (0-0.7) k/uL Basophils # 0.0 (0-0.2) k/uL Sodium 136 L (137-145) mmol/L Potassium 4.6 (3.5-5.1) mmol/L Chloride 106 (98-107) mmol/L Carbon Dioxide 22 (22-30) mmol/L Anion Gap 8 mmol/L BUN 8 (7-17) mg/dL Creatinine 0.58 (0.52-1.04) mg/dL Est GFR (CKD-EPI)AfAm >90 (>60 ml/min/1.73 sqM) Est GFR (CKD-EPI)NonAf >90 (>60 ml/min/1.73 sqM) Glucose 97 (74-99) mg/dL Calcium 8.7 (8.4-10.2) mg/dL Total Bilirubin 1.1 (0.2-1.3) mg/dL AST 34 (14-36) U/L ALT 24 (4-34) U/L Alkaline Phosphatase 56 (38-126) U/L Total Protein 6.9 (6.3-8.2) g/dL Albumin 3.5 (3.5-5.0) g/dL HCG, Quant 8499.3 mIU/mL Urine Color Colorless Urine Appearance Cloudy H (Clear) Urine pH 7.0 (5.0-8.0) Ur Specific [place] 1.011 (1.001-1.035) Urine Protein 1+ H (Negative) Urine Glucose (UA) Negative (Negative) Urine Ketones Negative (Negative) Urine Blood Small H (Negative) Urine Nitrite Negative (Negative) Urine Bilirubin Negative (Negative) Urine Urobilinogen <2.0 (<2.0) mg/dL Ur Leukocyte Esterase Large H (Negative) Urine RBC 30 H (0-5) /hpf Urine WBC >182 H (0-5) /hpf Urine WBC Clumps Many H (None) /hpf Ur Squamous Epith Cells 1 (0-4) /hpf Urine Bacteria Occasional H (None) /hpf Urine Mucus Rare H (None) /hpf Blood Type Blood Type Recheck Bld Type Recheck Status 06/15/24 Range/Units 14:08 WBC (3.8-10.6) k/uL RBC (3.80-5.40) m/uL Hgb (11.4-16.0) gm/dL Hct (34.0-46.0) % MCV (80.0-100.0) fL MCH (25.0-35.0) pg MCHC (31.0-37.0) g/dL RDW (11.5-15.5) % Plt Count (150-450) k/uL MPV Neutrophils % % Lymphocytes % % Monocytes % % Eosinophils % % Basophils % % Neutrophils # (1.3-7.7) k/uL Lymphocytes # (1.0-4.8) k/uL Monocytes # (0-1.0) k/uL Eosinophils # (0-0.7) k/uL Basophils # (0-0.2) k/uL Sodium (137-145) mmol/L Potassium (3.5-5.1) mmol/L Chloride (98-107) mmol/L Carbon Dioxide (22-30) mmol/L Anion Gap mmol/L BUN (7-17) mg/dL Creatinine (0.52-1.04) mg/dL Est GFR (CKD-EPI)AfAm (>60 ml/min/1.73 sqM) Est GFR (CKD-EPI)NonAf (>60 ml/min/1.73 sqM) Glucose (74-99) mg/dL Calcium (8.4-10.2) mg/dL Total Bilirubin (0.2-1.3) mg/dL AST (14-36) U/L ALT (4-34) U/L Alkaline Phosphatase (38-126) U/L Total Protein (6.3-8.2) g/dL Albumin (3.5-5.0) g/dL HCG, Quant mIU/mL Urine Color Urine Appearance (Clear) Urine pH (5.0-8.0) Ur Specific [place] (1.001-1.035) Urine Protein (Negative) Urine Glucose (UA) (Negative) Urine Ketones (Negative) Urine Blood (Negative) Urine Nitrite (Negative) Urine Bilirubin (Negative) Urine Urobilinogen (<2.0) mg/dL Ur Leukocyte Esterase (Negative) Urine RBC (0-5) /hpf Urine WBC (0-5) /hpf Urine WBC Clumps (None) /hpf Ur Squamous Epith Cells (0-4) /hpf Urine Bacteria (None) /hpf Urine Mucus (None) /hpf Blood Type A Positive Blood Type Recheck A Pos Bld Type Recheck Status No - Radiology Data Radiology results: report reviewed, image reviewed Disposition Clinical Impression: Threatened , UTI (urinary tract infection) Disposition: HOME SELF-CARE Condition: Stable Instructions (If sedation given, give patient instructions): Threatened Miscarriage (ED), Urinary Tract Infection in (ED) Additional Instructions: Complete full course of Keflex. Follow-up with WELFARE PROJECT MANAGER. Have serial hCGs and ultrasounds performed in 48 hours. Return to the ER for any new or worsening concerns. Prescriptions: Cephalexin [Keflex] 500 mg PO Q6HR #40 cap Is patient prescribed a controlled substance at d/c from ED?: No Referrals: Aminah Florez DO [Primary Care Provider] - 1-2 days Naomie Sharif DO [Doctor of Osteopathic Medicine] - 1-2 days Time of Disposition: 16:41
[2024-06-15 14:22] LABS: Basophils % (A) 0 %; Eosinophils # (A) 0.2 k/uL (0-0.7); Eosinophils % (A) 2 %; HCT 41.6 % (34.0-46.0); HGB 13.7 gm/dL (11.4-16.0); Lymphocytes # (A) 1.4 k/uL (1.0-4.8); Lymphocytes % (A) 19 %; MCH 28.3 pg (25.0-35.0); MCHC 32.9 g/dL (31.0-37.0); MCV 86.1 fL (80.0-100.0); Mean Platelet Volume 6.3; Monocytes # (A) 0.4 k/uL (0-1.0); Monocytes % (A) 6 %; Neutrophils # (A) 5.3 k/uL (1.3-7.7); Neutrophils % (A) 71 %; Platelet Count 261 k/uL (150-450); RBC 4.83 m/uL (3.80-5.40); RDW 13.3 % (11.5-15.5); WBC 7.5 k/uL (3.8-10.6)
[2024-06-15 14:37] LABS: ALT 24 U/L (4-34); African American GFR (CKD) >90 (>60 ml/min/1.73 sqM); Anion Gap 8 mmol/L; Blood Urea Nitrogen 8 mg/dL (7-17); Calcium 8.7 mg/dL (8.4-10.2); Carbon Dioxide 22 mmol/L (22-30); Chloride 106 mmol/L (98-107); Glucose 97 mg/dL (74-99); Non-African American GFR(CKD) >90 (>60 ml/min/1.73 sqM); Sodium 136 mmol/L (137-145); Total Bilirubin 1.1 mg/dL (0.2-1.3)
[2024-06-15 14:46] LABS: Appearance,Urine Cloudy (Clear); Bacteria,Urine Occasional /hpf; Bilirubin,Urine Negative (Negative); Blood,Urine Small (Negative); Color,Urine Colorless; Glucose,Urine (UA) Negative (Negative); Ketones,Urine Negative (Negative); Leukocyte Esterase,Urine Large (Negative); Mucus,Urine Rare /hpf; Nitrite,Urine Negative (Negative); Protein,Urine 1+ (Negative); RBC,Urine 30 /hpf (0-5); Specific Gravity,Urine 1.011 (1.001-1.035); Squamous Epithelial Cell,Urine 1 /hpf (0-4); Urobilinogen,Urine <2.0 mg/dL (<2.0); WBC,Urine >182 /hpf (0-5)
[2024-06-15 14:52] LABS: AST 34 U/L (14-36); Albumin 3.5 g/dL (3.5-5.0); Alkaline Phosphatase 56 U/L (38-126); Potassium 4.6 mmol/L (3.5-5.1); Total Protein 6.9 g/dL (6.3-8.2)
[2024-06-15 14:53] LABS: HCG,Quantitative Serum 8499.3 mIU/mL
--- NOTE | 2024-06-15 16:28 | US ---
EXAMINATION TYPE: Transabdominal DATE OF EXAM: 06/15/2024 3:41 PM COMPARISON: NONE for this CLINICAL INDICATION: Female, 38 years old with history of vaginal bleeding; Vaginal bleeding x 2 days . Hx 3 miscarriages. A3. TECHNIQUE: Transvaginal (TV) and Transabdominal (TA) with grayscale and color Doppler imaging. EXAM MEASUREMENTS: GESTATIONAL AGE / DATING Physician Established: Not yet established Dates by LMP: (11 weeks/5 days) EDC: 12/30/2024 Dates by First Scan: This is first scan for this Dates by Current Scan for: (7 weeks/4 days) EDC: 01/28/2025 . By gestational sac measurement. MATERNAL ANATOMY Uterus: 9.9 x 5.9 x 5.6 cm. Right Ovary: Not seen Left Ovary: Not seen Post CDS / Adnexa: Appear wnl Presence of free fluid: Not seen Presence of corpus luteal cyst: Not seen Presence of subchorionic bleed: Possibly-hypoechoic area seen inferior to the gestational sac= 0.4 x 0.4 x 0.5 cm. GESTATION / SURVEY CRL: Not seen with certainty. MSD: 2.73 cm. (7 weeks/4 days) Yolk Sac (normal less than 6mm): Not seen. Heart Rate: Not visualized IUP: Gestational sac seen with indistinct echogenic area within. Date of LMP: 03/25/2024 Beta HcG (if available): 8,499.3 mIU/mL Echogenic area of uncertainty seen within the gestational sac that appears to be adjacent to the ut erus wall: 2.1 x 1.7 x 1.2 cm. No color flow seen within. IMPRESSION: 1. Small anechoic intrauterine cystic structure without evidence for yolk sac or pole at this time. This is thought to represent an early gestational sac with a positive beta hCG, however ectopic and abnormal intrauterine cannot be ruled out based on this exam alone. Follow-u p with pelvic ultrasound in 7-10 days and serial beta-hCG studies are recommended to en sure further development of the fetus. 2. Possible small subchorionic hemorrhage is noted. [facility], Workstation: [id number], 06/15/2024 4:26 PM
[2024-06-15 16:57] VITALS: BP 179/109; PULSE 85; RESP 20; TEMP 98.2
== END 2024-06-15 16:57 | disposition home or self-care (01) ==
LOC: EC 13:10
CPT/HCPCS: 36415; 76801; 76817; 80053; 81001; 84702; 85025; 86900; 86901; 87077; 87086; 87186; 99284

== ENCOUNTER → 2024-06-17 | Outpatient (CLI) | payer OTHER | END | disposition home or self-care (01) | LOC: LABWHC1 14:10 | PROVIDERS: ATTEND Technician/Technologist | DX: O20.0 Threatened abortion (principal) | CPT/HCPCS: 36415; 84702 ==

== ENCOUNTER → 2024-06-26 | Outpatient (CLI) | payer OTHER | END | disposition home or self-care (01) | LOC: LABWHC1 16:14 | PROVIDERS: ATTEND Obstetrics & Gynecology Obstetrics | DX: O03.9 Complete or unspecified spontaneous abortion without complication (principal) | CPT/HCPCS: 36415; 84702 ==

== ENCOUNTER → 2024-07-05 | Outpatient (CLI) | payer OTHER | END | disposition home or self-care (01) | LOC: LABWHC1 14:31 | PROVIDERS: ATTEND Obstetrics & Gynecology Obstetrics | DX: O03.9 Complete or unspecified spontaneous abortion without complication (principal) | CPT/HCPCS: 36415; 84702 ==

== ENCOUNTER → 2024-12-10 | Outpatient (CLI) | payer OTHER ==
[2024-12-10 18:29] LABS: Basophils # (A) 0.03 X 10*3/uL (0.00-0.10); Basophils % (A) 0.4 %; Eosinophils # (A) 0.26 X 10*3/uL (0.04-0.35); Eosinophils % (A) 3.2 %; HCT 44.7 % (37.2-46.3); HGB 14.7 g/dL (12.0-15.0); Lymphocytes # (A) 2.25 X 10*3/uL (0.90-5.00); Lymphocytes % (A) 27.8 %; MCH 27.6 pg (27.0-32.0); MCHC 32.9 g/dL (32.0-37.0); MCV 83.9 FL (80.0-97.0); Mean Platelet Volume 8.9 FL (9.5-12.2); Monocytes # (A) 0.52 X 10*3/uL (0.20-1.00); Monocytes % (A) 6.4 %; NRBC Per 100 WBC 0 X 10*3/uL (0.00-0.01); Neutrophils # (A) 5.01 X 10*3/uL (1.80-7.70); Platelet Count 262 X 10*3/uL (140-440); RBC 5.33 X 10*6/uL (4.10-5.20); RDW 13.9 % (11.5-14.5); WBC 8.09 X 10*3/uL (4.50-10.00)
[2024-12-10 18:51] LABS: ALT 21 U/L (8-44); AST 22 U/L (13-35); Albumin 3.8 g/dL (3.8-4.9); Albumin/Globulin Ratio 1.23 Ratio (1.60-3.17); Alkaline Phosphatase 69 U/L (41-126); BUN/Creat Ratio 11.88 Ratio (12.00-20.00); Blood Urea Nitrogen 9.5 mg/dL (9.0-27.0); Calcium 9.7 mg/dL (8.7-10.3); Carbon Dioxide 25.8 mmol/L (21.6-31.8); Chloride 102 mmol/L (96-109); Globulin 3.1 g/dL (1.6-3.3); Glucose 85 mg/dL (70-110); Potassium 4.3 mmol/L (3.5-5.5); Sodium 139 mmol/L (135-145); Total Bilirubin 0.4 mg/dL (0.3-1.2); Total Protein 6.9 g/dL (6.2-8.2)
== END | disposition home or self-care (01) ==
LOC: LABWHC1 14:46
PROVIDERS: ATTEND Family Medicine
DX: I10 Essential (primary) hypertension (principal); E03.9 Hypothyroidism, unspecified; E11.9 Type 2 diabetes mellitus without complications
CPT/HCPCS: 36415; 80053; 83036; 84443; 85025